=== PATIENT | male | born 1970 | race Caucasian/White ===

== ENCOUNTER 2019-03-18 00:52 | Emergency (ER) | payer SELFPAY ==
[~2019-03-18] VITALS: Ht 165.1 cm; Wt 73.2 kg
[~2019-03-18 00:52] MED LIST: IBUP-1542 PO
[2019-03-18 01:09] VITALS: Ht 165.1 cm; Wt 73.2 kg
[2019-03-18] MEDS ORDERED: ONDANSETRON (ODT) 4 MG TAB ODT STA (01:28)
--- NOTE | 2019-03-18 01:47 | ERD ---
ER Documentation Chief Complaint Chief Complaint Vomiting & sorethroat x 4 hours HPI Patient is a 48-year-old male, no past medical history, presents the ER for concerns of throat pain and vomiting for the last 4 hours. Patient states he had spaghetti to eat for dinner. Patient states "my kids often put their toys everywhere." Patient is concerned that he have swallowed 1 of his kids his toys. Patient did not see 1 of his kids put a toy in his. Patient reports a foreign body sensation. Patient states he has been forcing himself to vomit. Patient reports vomiting 3 times for the last 4 hours. Patient has no fevers, chills, chest pain, shortness of breath, diarrhea, frequency, urgency, hematuria. Patient admits epigastric pain which started only after vomiting numerous times. No recent travel. No sick contacts. ROS All systems reviewed and are negative except as per history of present illness. Medications Home Meds Active Scripts Ibuprofen* (Motrin*) 600 Mg Tab, 600 MG PO Q6, #30 TAB Prov:SITA NINO PA-C 03/18/19 Allergies Allergies: Coded Allergies: No Known Allergy (Unverified , 03/18/19) PMhx/Soc History of Surgery: Yes Anesthesia Reaction: No Hx Neurological Disorder: No Hx Respiratory Disorders: No Hx Cardiac Disorders: No Hx Psychiatric Problems: No Hx Miscellaneous Medical Probl: No Hx Alcohol Use: No Hx Substance Use: No Hx Tobacco Use: No Smoking Status: Never smoker FmHx Family History: No diabetes Physical Exam Vitals Vital Signs Date Temp Pulse Resp B/P (MAP) Pulse Ox O2 O2 Flow FiO2 Time Delivery Rate 03/18/19 97.9 96 17 112/69 100 01:09 (83) Physical Exam GENERAL: Well-developed, well-nourished male. Appears in no acute distress. HEAD: Normocephalic, atraumatic. No deformities or ecchymosis. EYE: Pupils equal, round, and reactive to light. EOMs intact. No conjunctival erythema. No eye discharge. ENT: External ear without any masses or tenderness. Auditory canals clear bilaterally. TM visualized bilaterally, non-erythematous, non-bulging. Nasal mucosa pink with no discharge. Oropharynx is erythematous, no exudates noted. No tonsillar swelling. Oropharynx is open and patient is able to tolerate his secretions without any difficulty. No drooling. No trismus. No uvula deviation. No kissing tonsils. NECK: Supple. No meningismus. Normal ROM of the neck. LUNG: Clear to auscultation bilaterally. No rhonchi, wheezing, rales or coarse breath sounds. HEART: Regular rate and rhythm. No murmurs, rubs or gallops. ABDOMEN: Soft, nontender, and nondistended. Positive bowel sounds in all four quadrants. No rebound tenderness, no guarding. (-) McBurney's point tenderness. No CVA tenderness. EXTREMITES: Equal pulses bilaterally. No peripheral clubbing, cyanosis or edema. No unilateral leg swelling. NEUROLOGIC: Alert and oriented to person, place and time. Moving all four extremities. 5/5 strength in all extremities. Normal speech. Steady gait. SKIN: Normal color. Warm and dry. No rashes or lesions. Results 24 hrs Current Medications Medications Dose Sig/Gayathri Start Time Status Last (Trade) Ordered Route PRN Stop Time Admin Dose Reason Admin Ondansetron 4 mg ONCE STAT 03/18/19 DC 03/18/19 HCl (Zofran ODT 01:28 01:34 Odt) 03/18/19 01:29 Procedures/MDM ED COURSE: The patient was stable throughout ED course. I kept the patient and/or family informed of laboratory and diagnostic imaging results throughout the ED course. DIAGNOSTIC IMAGING: Read by radiologist. DIAGNOSTIC IMAGING REPORT Patient: JUAN JACK : 1970 Age: 48 Sex: M MR #: [id number] DOS: 03/18/19 0128 Ordering MD: SITA NINO PA-C Location: [facility] Room/Bed: PROCEDURE: CT soft tissue neck without contrast CLINICAL INDICATION: Foreign body sensation TECHNIQUE: Helically acquired axial CT images of the neck obtained without intravenous contrast. Sagittal and coronal reconstructed images were obtained from the axial data set. The images were reviewed on a PACS workstation. CTDIvol 9.10 mGy DLP 270.28 mGy-cm. DICOM images are available. One or more of the following dose reduction techniques were utilized: 1.) Automated exposure control 2.) Adjustment of the mA +/- kV according to patient's size 3.) Use of iterative reconstruction technique. COMPARISON: None. FINDINGS: Sinuses: Partially imaged paranasal sinuses and mastoid air cells are clear. Posterior nasopharynx, tonsillar pillars, tongue base and piriform sinuses: Normal. Floor of mouth: Normal. Retropharyngeal and parapharyngeal spaces: Normal. Major salivary glands: Normal. Superficial soft tissues: Unremarkable. Epiglottis and aryepiglottic folds: Normal. Laryngeal apparatus: Normal. Lymph nodes: No significant lymphadenopathy. Thyroid gland: Normal. Major arteries and veins: Unremarkable as visualized. Lung apices: Unremarkable. Cervical spine: No gross abnormalities. IMPRESSION: Negative contrast unenhanced CT of the neck soft tissues. No foreign body identified. RPTAT: HJBB Physician Can Date Time Electronically viewed and signed by Physician Can on 03/18/2019 02:35 xB/ CC: SITA NINO PA-C [id number] PROCEDURES: None. MEDICAL DECISION MAKING: This is a 48-year-old male presents the ER for concerns of throat pain and vomiting for the last 4 hours. Patient is concerned that he may have a foreign body in his throat. Patient has no drooling. Patient is not actively coughing. Patient appears to be in no acute distress. Vital signs were reviewed. Patient was afebrile. Patient was not hypoxic. On exam, patient's oropharynx is open and patient is tolerating secretions well. Oropharynx does appear erythematous which is consistent with pharyngitis. The patient does not have trismus, muffled voice, uvula deviation, unilateral tonsillar swelling, or drooling. No signs of neck swelling or hyperextension of the neck noted. CT imaging was obtained was unremarkable. See formal report above. At this time, patient presentation is most consistent with pharyngitis and vomiting. Low suspicion for retained foreign body, airway compromise, e piglottitis, peritonsillar abscess, retropharyngeal abscess, Ludwigs angina, strep pharyngitis, viral pharyngitis, dental abscess. Patient was nontoxic, [id number] prior to discharge. PRESCRIPTIONS: Ibuprofen DISCHARGE: At this time, patient is stable for discharge and outpatient management. Supportive therapies such as OTC throat lozenges and warm salt water gurgles wer e discussed. I have instructed the patient to follow-up with his/her primary care physician in 1-2 days. I have discussed with the patient the possibility of needing to see a specialist for further workup and imaging studies if symptoms persist. I have instructed the patient to promptly return to the ER for any new or worsening symptoms including increased pain, fever, nausea, vomiting, weakness or LOC. The patient and/or family expressed understanding of and agreement with this plan. All questions were answered. Home care instructions were provided. Disclaimer: Inadvertent spelling and grammatical errors are likely due to EHR/ dictation software use and do not reflect on the overall quality of patient care. Also, please note that the electronic time recorded on this note does not necessarily reflect the actual time of the patient encounter. Departure Diagnosis: Primary Impression: Pharyngitis Pharyngitis/tonsillitis etiology: unspecified etiology Qualified Codes: J02.9 - Acute pharyngitis, unspecified Additional Impression: Vomiting Vomiting type: unspecified Vomiting Intractability: unspecified Nausea presence: unspecified Qualified Codes: R11.10 - Vomiting, unspecified Condition: Fair Patient Instructions: Pharyngitis, Viral Referrals: TATO PENA MD, VISHAL MD COOPER, STEPHEN H MD NAMAZIE, ALI R MD Additional Instructions: Follow-up with an ENT specialist for endoscopy on an outpatient basis. Call your primary care doctor TOMORROW for an appointment during the next 1-2 days.See the doctor sooner or return here if your condition worsens before your appointment time. SITA NINO PA-C Mar 18, 2019 01:47
[2019-03-18 02:55] VITALS: BP 126/85; PULSE 71; RESP 14
== END 2019-03-18 02:57 | disposition home or self-care (01) ==
LOC: FTE 00:52
DX: J02.9 Acute pharyngitis, unspecified (principal); R11.10 Vomiting, unspecified
CPT/HCPCS: 70490